=== PATIENT | female | born 1985 | race Caucasian/White ===

== ENCOUNTER 2022-12-30 10:30 | Outpatient (CLI) | payer BC ==
[2022-12-30 11:05] LABS: BHCG - Serum Negative (NEGATIVE); Pregs Control Background? CLEAR/WHITE (CLR/WHITE); Pregs Control Bar Appear? YES (CONTROL BAR)
[2022-12-30] MEDS ORDERED: Iopamidol 300 61% 100 ML VIAL FS ONE (13:02)
== END 2022-12-30 10:31 | disposition home or self-care (01) ==
LOC: RAD 10:30
PROVIDERS: ATTEND Obstetrics & Gynecology Reproductive Endocrinology
DX: Z32.00 Encounter for pregnancy test, result unknown (principal); N97.1 Female infertility of tubal origin
CPT/HCPCS: 58340; 74740; 84703; Q9967